=== PATIENT | female | born 1970 | race Caucasian/White ===

== ENCOUNTER 2019-04-09 07:23 | Emergency (ER) | payer SELFPAY ==
[~2019-04-09] VITALS: Ht 160 cm; Wt 79.9 kg
[2019-04-09 07:26] VITALS: BP 134/61; PULSE 102; RESP 18; Ht 160 cm; Wt 79.9 kg
== END 2019-04-09 07:38 | disposition left against medical advice (07) ==
LOC: FTE 07:23
DX: Z53.21 Procedure and treatment not carried out due to patient leaving prior to being seen by health care provider (principal)